=== PATIENT | female | born 1980 | race Caucasian/White ===

== ENCOUNTER 2018-09-02 17:21 | Emergency (ER) | payer MEDICAID, OTHER ==
[~2018-09-02] VITALS: Ht 162.6 cm; Wt 61.5 kg
[2018-09-02 17:31] VITALS: BP 131/94
== END 2018-09-02 19:05 | disposition home or self-care (01) ==
LOC: ER 17:24
DX: F41.9 Anxiety disorder, unspecified (principal)

== ENCOUNTER 2018-09-30 08:25 | Outpatient (CLI) | payer BC, OTHER ==
[2018-09-30 09:51] LABS: BASOPHILS % (AUTO) 0.7 % (0.0-2.0); EOSINOPHILS % (AUTO) 4.7 % (0.0-6.0); HEMATOCRIT 41 % (33-45); HEMOGLOBIN 13.7 g/dL (11.5-14.8); LYMPHOCYTES # (AUTO) 1.4 /CMM (0.8-4.8); LYMPHOCYTES % (AUTO) 39.1 % (20.0-44.0); MEAN CORPUSCULAR HGB CONC 34 g/dl (31.0-36.0); MEAN CORPUSCULAR VOLUME 93 fL (82-100); MONOCYTES # (AUTO) 0.2 /CMM (0.1-1.30); MONOCYTES % (AUTO) 6.7 % (2.0-12.0); NEUTROPHILS # (AUTO) 1.8 /CMM (1.8-8.9); NEUTROPHILS % (AUTO) 48.8 % (43.0-81.0); PLATELET COUNT (AUTO) 211 /CMM (150-450); RED BLOOD CELL COUNT(AUTO) 4.41 MIL/uL (4.0-5.2); WHITE BLOOD COUNT (AUTO) 3.7 K/uL (4.3-11.0)
[2018-09-30 10:04] LABS: APPEARANCE,URINE SL CLOUDY (CLEAR); BILIRUBIN,URINE NEGATIVE (NEGATIVE); BLOOD, URINE 1+ Ery/uL (NEGATIVE); COLOR,URINE YELLOW (YELLOW); KETONES,URINE NEGATIVE (NEGATIVE); LEUKOCYTE ESTERASE ,URINE NEGATIVE (NEGATIVE); NITRITE, URINE NEGATIVE (NEGATIVE); PH,URINE 5.5 (5.0-8.0); PROTEIN,URINE NEGATIVE (NEGATIVE); UGLUCOSE NEGATIVE (NEGATIVE); UROBILINOGEN,URINE 0.2 EU/dL (0.2)
[2018-09-30 10:08] LABS: BILIRUBIN,TOTAL 1.7 mg/dL (0.2-1.0); CALCIUM, SERUM 8.7 mg/dL (8.5-10.1); CREATININE 0.9 mg/dL (0.6-1.3); POTASSIUM 3.7 mmol/L (3.5-5.1); TOTAL PROTEIN, SERUM 7.5 g/dL (6.4-8.2)
[2018-09-30 10:19] LABS: THYROID STIMULATING HORMONE 1.062 uIU/mL (0.358-3.74)
[2018-09-30 10:35] LABS: RBC,URINE 0-2 /HPF (0-2)
[2018-09-30 10:36] LABS: BACTERIA,URINE Few /HPF (None Seen); SQUAMOUS EPITHELIAL CELL,UR Moderate /HPF (None Seen)
[2018-09-30 10:37] LABS: URINE AMORPHOUS URATE Few /HPF (None Seen)
[2018-10-02 15:08] LABS: FOLIC ACID > 20.0 ng/mL (>3.0)
== END 2018-09-30 23:59 | disposition home or self-care (01) ==
LOC: LAB 08:25
PROVIDERS: ATTEND Legal Medicine
DX: Z00.00 Encounter for general adult medical examination without abnormal findings (principal)
CPT/HCPCS: 36415; 80053-TC; 80061-TC; 81000-TC; 82306; 82728-TC; 83540-TC; 84439-TC; 84443-TC; 85025-TC; 86592; 87491; 87591; 87806

== ENCOUNTER 2018-10-10 08:30 | Outpatient (CLI) | payer BC ==
[2018-10-10 09:51] LABS: ALBUMIN 4.1 g/dL (3.4-5.0); BILIRUBIN,DIRECT 0.3 mg/dL (0.0-0.2); TOTAL PROTEIN, SERUM 7.5 g/dL (6.4-8.2)
== END 2018-10-10 23:59 | disposition home or self-care (01) ==
LOC: WOU 08:30
PROVIDERS: ATTEND Podiatrist Foot & Ankle Surgery
DX: L60.3 Nail dystrophy (principal); L60.0 Ingrowing nail
CPT/HCPCS: 36415; 80076-TC; G0463